=== PATIENT | female | born 1970 | race Two or more races ===

== ENCOUNTER 2016-11-20 22:43 | Emergency (ER) | payer OTHER ==
[~2016-11-20] VITALS: Ht 167.6 cm; Wt 104.3 kg
[~2016-11-20 22:43] MED LIST: ARMO250T4 PO; BUPR1PAT2 TD; BUTRANS TD; CHARCOAL PO; CITA10TA17 PO; CODE1CAP21 PO; DEXT5TAB15 PO; DICY10CA59 PO; FURO40TA5 PO; HYDR-3658 PO; IBUP-1482 PO; MAGN200T4 PO; META-25 PO; MILN100T PO; PANT40TA4 PO; POTA10TA PO; TIZA4TAB11 PO; TOPI50TA PO; TRIM300C14 PO; [UNRECOGNIZED DRUG - OTHER] TP
--- NOTE | 2016-11-20 22:55 | NUR ---
PT A/OX4 BREATHING EFFORTLESSLY ON ROOM AIR, PT STATES SHE HAS BEEN HVAING RIGHT FLANK PAIN X 3 HOURS, PT STATES SHE HAS HX OF KIDNEY STONES, PT GIVEN 4MG OF ZOFRAN BY EMS PRIRO TO ARRIVAL, IV PLACED, URINE COLLECTED, LABS DRAWN, PT IN GOWN AND ON MONITOR, MD MADE AWARE WILL CONTINUE TO MONITOR.
[2016-11-20] MEDS ORDERED: MORPHINE SULFATE INJ 2 MG/ML DISP.SYRIN IV ONE (23:00)
[2016-11-20] MEDS ORDERED: ONDANSETRON HCL/PF 4 MG/2 ML VIAL IVP ONE (23:00)
[2016-11-20] MEDS ORDERED: IV NS 0.9% 1,000 ML BAG IV ONE (23:00)
[2016-11-20] MEDS ORDERED: MORPHINE SULFATE INJ 4 MG/ML DISP.SYRIN ONE ×2 (23:05→23:58)
[2016-11-20] MEDS ORDERED: IV SET PRIMARY 1 EA INFUS.SET MC ONE (23:05)
[2016-11-20] MEDS ORDERED: IV NS 0.9% 1,000 ML ONE (23:05)
[2016-11-20 23:14] LABS: BASOPHILS % (AUTO) 0.2 % (0.0-2.0); EOSINOPHILS % (AUTO) 0.3 % (0.0-6.0); HEMATOCRIT 49 % (33-45); HEMOGLOBIN 16.7 g/dL (11.5-14.8); LYMPHOCYTES # (AUTO) 1.5 /CMM (0.8-4.8); LYMPHOCYTES % (AUTO) 13.1 % (20.0-44.0); MEAN CORPUSCULAR HEMOGLOBIN 31 PG (26.0-33.0); MEAN CORPUSCULAR HGB CONC 34 g/dl (31.0-36.0); MEAN CORPUSCULAR VOLUME 90 fL (82-100); MONOCYTES # (AUTO) 0.6 /CMM (0.1-1.30); MONOCYTES % (AUTO) 4.9 % (2.0-12.0); NEUTROPHILS # (AUTO) 9.2 /CMM (1.8-8.9); NEUTROPHILS % (AUTO) 81.5 % (43.0-81.0); PLATELET COUNT (AUTO) 252 /CMM (150-450); RED BLOOD CELL COUNT(AUTO) 5.47 MIL/uL (4.0-5.2); WHITE BLOOD COUNT (AUTO) 11.3 K/uL (4.3-11.0)
[2016-11-20] MEDS ORDERED: KETOROLAC TROMETHAMINE INJ 30 MG/ML VIAL ONE (23:14)
[2016-11-20 23:16] LABS: APPEARANCE,URINE SL CLOUDY (CLEAR); BILIRUBIN,URINE NEGATIVE (NEGATIVE); BLOOD, URINE 2+ Ery/uL (NEGATIVE); COLOR,URINE YELLOW (YELLOW); KETONES,URINE NEGATIVE (NEGATIVE); LEUKOCYTE ESTERASE ,URINE NEGATIVE (NEGATIVE); NITRITE, URINE NEGATIVE (NEGATIVE); PH,URINE 5.5 (5.0-8.0); PROTEIN,URINE 1+ mg/dl (NEGATIVE); UGLUCOSE NEGATIVE (NEGATIVE); UROBILINOGEN,URINE 0.2 EU/dL (0.2)
[2016-11-20 23:23] LABS: BACTERIA,URINE 2+ /HPF (None Seen); MUCUS,URINE Few /LPF (None Seen); SQUAMOUS EPITHELIAL CELL,UR Few /HPF (None Seen); URIC ACID CRYSTALS,URINE Many /HPF (None Seen); WBC,URINE 0-2 /HPF (0-3)
[2016-11-20 23:26] LABS: CALCIUM, SERUM 9.3 mg/dL (8.5-10.1); POTASSIUM 3.5 mmol/L (3.5-5.1)
[2016-11-20] MEDS ORDERED: KETOROLAC TROMETHAMINE INJ 30 MG/ML VIAL IV ONE (23:30)
[2016-11-20 23:31] LABS: ALBUMIN 4.1 g/dL (3.4-5.0); BILIRUBIN,DIRECT 0.1 mg/dL (0.0-0.2); BILIRUBIN,TOTAL 0.6 mg/dL (0.2-1.0); TOTAL PROTEIN, SERUM 7.4 g/dL (6.4-8.2)
[2016-11-21] MEDS ORDERED: MORPHINE SULFATE INJ 2 MG/ML DISP.SYRIN IV ONE
--- NOTE | 2016-11-21 00:41 | NUR ---
IV removed. Catheter intact and site benign. Pressure and 4x4 applied to site. No bleeding noted.Patient discharged to home in stable condition. Written and verbal after care instructions given. Patient verbalizes understanding of instruction.
[2016-11-21 00:42] VITALS: BP 137/72
== END 2016-11-21 00:43 | disposition home or self-care (01) ==
LOC: ER 22:45
DX: N20.0 Calculus of kidney (principal); G89.29 Other chronic pain; Z87.442 Personal history of urinary calculi
CPT/HCPCS: 36415; 80048; 80076; 81001; 83690; 85025; 96361; 96374; 96375; 99284; A4606; J1885; J2270; J7030; Z7610; 81000-TC

== ENCOUNTER 2022-04-24 17:23 | Inpatient (IN) | payer OTHER ==
[~2022-04-24] VITALS: Ht 172.7 cm; Wt 68.0 kg
[~2022-04-24 17:23] MED LIST changes: +ARMO250T2 PO; -ARMO250T4 PO; -HYDR-3658 PO; +HYDR-3980 PO; -IBUP-1482 PO; +IBUP800T54 PO; -PANT40TA4 PO; +PANT40TA49 PO
--- NOTE | 2022-04-24 17:30 | NUR ---
[id number] FROM HOME C/O SEIZURE, UNWITNESSED, POST ICTAL, ABRASION ON LEFT CHEEK, +ORAL TRAUMA
--- NOTE | 2022-04-24 17:36 | NUR ---
ROOM MATE [phone]
--- NOTE | 2022-04-24 17:49 | NUR ---
ESTABLISHED IV LINE LEFT WRIST 20G
[2022-04-24] MEDS ORDERED: IV NS 0.9% 1,000 ML BAG IV ONE (18:30)
--- NOTE | 2022-04-24 19:05 | NUR ---
ASSISTANT MANAGER PT = BENJAMIN [phone]
--- NOTE | 2022-04-24 19:32 | NUR ---
RECEIVED REPORT FROM ISIDRO GRAHAM. PT CAME INITIALLY WITH CC OF SEIZURE AT HOME. PATIENT IS AAOX4. ABLE TO MAKE NEEDS KNOWN. + ABRASIONS ON LEFT CHEEK. WITH IV ACCESS ON RIGHT INNER WRIST USING G20; WITH ONGOING IVF OF 0.9NS RUNNING. ATTACHED TO MONITOR. VITALS CHECKED.
[2022-04-24 19:41] LABS: CALCIUM, SERUM 9.4 mg/dL (8.5-10.1); CARBON DIOXIDE 21 mmol/L (21-32); CHLORIDE 117 mmol/L (98-107); CREATININE 1.1 mg/dL (0.6-1.3); GLUCOSE 106 mg/dL (74-106); POTASSIUM 3.6 mmol/L (3.5-5.1); SODIUM SERUM 144 mmol/L (136-145); UREA NITROGEN, BLOOD 18 mg/dL (7-18)
[2022-04-24] MEDS ORDERED: LORAZEPAM INJ 2 MG/ML VIAL ONE (19:51)
[2022-04-24] MEDS ORDERED: LEVETIRACETAM (500MG) 500 MG/5 ML VIAL IV ONE (19:52)
--- NOTE | 2022-04-24 19:55 | NUR ---
PATIENT IS HAVING TONIC/CLONIC SEIZURE. POSITIONED PATIENT ON THE RIGHT SIDE TO HELP WITH AIRWAY. MD MADE AWARE
[2022-04-24 19:56] LABS: ALANINE AMINOTRANSFERASE 44 U/L (12-78); ALBUMIN 4.2 g/dL (3.4-5.0); ALKALINE PHOSPHATASE 31 U/L (46-116); ASPARTATE AMINOTRANSFERASE 21 U/L (15-37); BILIRUBIN,DIRECT 0.1 mg/dL (0.0-0.2); BILIRUBIN,TOTAL 0.5 mg/dL (0.2-1.0); TOTAL PROTEIN, SERUM 7.2 g/dL (6.4-8.2)
[2022-04-24 19:57] LABS: ALCOHOL, BLOOD < 3 mg/dL (0-0)
[2022-04-24] MEDS ORDERED: LEVETIRACETAM (500MG) 1,000 MG in IV NS 0.9% 100 ML IV SCH ×2 (20:00→23:00)
[2022-04-24] MEDS ORDERED: LORAZEPAM INJ 2 MG/ML VIAL IV ONE (20:00)
--- NOTE | 2022-04-24 20:01 | NUR ---
SUCTION SECRETIONS DONE. PLACED PATIENT ON NON REBREATHER AT 15LPM
--- NOTE | 2022-04-24 20:20 | NUR ---
PT REGAIN CONSCIOUSNESS BUT STILL DROWSY. CANNOT REMEMBER WHAT HAPPENED.
--- NOTE | 2022-04-24 20:40 | NUR ---
DR REYNA ON THE PHONE WITH MILANO
[2022-04-24 20:41] LABS: BASOPHILS % (AUTO) 0.4 % (0.0-2.0); EOSINOPHILS % (AUTO) 0.4 % (0.0-6.0); HEMATOCRIT 48 % (33-45); HEMOGLOBIN 16.1 g/dL (11.5-14.8); LYMPHOCYTES # (AUTO) 1.2 K/uL (0.8-4.8); LYMPHOCYTES % (AUTO) 19.3 % (20.0-44.0); MEAN CORPUSCULAR HGB CONC 34 g/dl (31.0-36.0); MEAN CORPUSCULAR VOLUME 96 fL (82-100); MONOCYTES # (AUTO) 0.3 K/uL (0.1-1.30); MONOCYTES % (AUTO) 5.2 % (2.0-12.0); NEUTROPHILS # (AUTO) 4.6 K/uL (1.8-8.9); NEUTROPHILS % (AUTO) 74.7 % (43.0-81.0); PLATELET COUNT (AUTO) 238 K/uL (150-450); RED BLOOD CELL COUNT(AUTO) 4.96 MIL/uL (4.0-5.2); WHITE BLOOD COUNT (AUTO) 6.2 K/uL (4.3-11.0)
--- NOTE | 2022-04-24 21:55 | NUR ---
DR REYNA ON THE PHONE WITH DR PERSAUD FROM [facility]
--- NOTE | 2022-04-24 22:17 | NUR ---
PER DR PERSAUD AND EDER AT [facility] GOT AUTH TO STAY AT THE [facility] CASE REF NO: [id number]
--- NOTE | 2022-04-24 22:18 | NUR ---
RM 306-1
[2022-04-24] MEDS ORDERED: METH-359 PO (22:24)
[2022-04-24] MEDS ORDERED: DICY10SO PO (22:24)
--- NOTE | 2022-04-24 22:30 | NUR ---
PATIENT IS AWAKE, ALERT, ORIENTED X4. ABLE TO TURN BY SELF.
--- NOTE | 2022-04-24 22:38 | NUR ---
REPORT GIVEN TO ISIDRO MELCHOR.
--- NOTE | 2022-04-24 22:47 | NUR ---
TRANSFERED TO 306 UNDER ACLS
[2022-04-24 23:00] VITALS: BP 119/66
[2022-04-24] MEDS ORDERED: MAGNESIUM HYDROXIDE 30 ML UDC PO PRN (23:00)
[2022-04-24] MEDS ORDERED: ONDANSETRON HCL/PF 4 MG/2 ML VIAL IVP PRN (23:00)
[2022-04-24] MEDS ORDERED: IV NS 0.9% 1,000 ML IV ONE (23:00)
[2022-04-24] MEDS ORDERED: ZOLPIDEM TARTRATE 5 MG TABLET PO PRN (23:00)
[2022-04-24] MEDS ORDERED: Z GUARD REMEDY 4 OZ OINT TP PRN (23:00)
[2022-04-24] MEDS ORDERED: LORAZEPAM INJ 2 MG/ML VIAL IV PRN (23:00)
[2022-04-24] MEDS ORDERED: MAG HYDROX/AL HYDROX/SIMETH 30 ML UDC PO PRN (23:00)
--- NOTE | 2022-04-24 23:00 | NUR ---
RN NOTE; RECEIVED PT FROM ER WITH TEJAS SYLVESTER ABLE TO MAKE NEEDS KNOWN,KAIA WELL ON RM AIR,NO SIGN SOB/DISTRESS NOTED,BREATHING EVEN AND UNLABORE,NO COMPLAIN OF PAIN/DISCOMFORT AT THIS TIME,IV ACCESS ON L INNER WRIST 20G SL,INTACT AND PATENT,PT WAS ORIENT THE RM AND VERBALLY UNDERSTANDING,SAFETY MEASURE IN PLACE,CALL LIGHT WITHIN REACH,WILL CONTINUE TO MONITOR.
[2022-04-25 06:13] LABS: BASOPHILS % (AUTO) 0.3 % (0.0-2.0); EOSINOPHILS % (AUTO) 0.4 % (0.0-6.0); HEMATOCRIT 39 % (33-45); HEMOGLOBIN 13.2 g/dL (11.5-14.8); LYMPHOCYTES # (AUTO) 1.6 K/uL (0.8-4.8); LYMPHOCYTES % (AUTO) 22.1 % (20.0-44.0); MEAN CORPUSCULAR HGB CONC 34 g/dl (31.0-36.0); MEAN CORPUSCULAR VOLUME 94 fL (82-100); MONOCYTES # (AUTO) 0.5 K/uL (0.1-1.30); MONOCYTES % (AUTO) 6.7 % (2.0-12.0); NEUTROPHILS % (AUTO) 70.5 % (43.0-81.0); PLATELET COUNT (AUTO) 222 K/uL (150-450); RED BLOOD CELL COUNT(AUTO) 4.14 MIL/uL (4.0-5.2)
--- NOTE | 2022-04-25 06:21 | NUR ---
RN CLOSING NOTE; PATIENT IN BED AAOX4 ABLE TO MAKE NEEDS KNOWN,KAIA WELL ON RM AIR,NO SIGN SOB/DISTRESS NOTED,BREATHING EVEN AND UNLABORED,NO COMPLAIN OF PAIN/DISCOMFORT DURING SHIFT,DUE MEDS GIVEN ORDER,ALL NEEDS ATTENDED,IV ACCESS ON Lt WRIST 20G WITH NS RUNNING @75ML/HR,KAIA WELL,INTACT AND PATENT,SAFETY MEASURE IN PLACE,CALL LIGHT WITHIN REACH,WILL ENDORSED TO NEXT SHIFT.
[2022-04-25 06:42] LABS: BILIRUBIN,URINE NEGATIVE (NEGATIVE); COLOR,URINE YELLOW (YELLOW); LEUKOCYTE ESTERASE ,URINE NEGATIVE (NEGATIVE); NITRITE, URINE NEGATIVE (NEGATIVE); PH,URINE 6.5 (5.0-8.0); PROTEIN,URINE NEGATIVE (NEGATIVE); UGLUCOSE NEGATIVE (NEGATIVE); UROBILINOGEN,URINE 0.2 EU/dL (0.2)
[2022-04-25 06:49] LABS: CALCIUM, SERUM 8.3 mg/dL (8.5-10.1); CREATININE 0.6 mg/dL (0.6-1.3); MAGNESIUM 2.1 mg/dL (1.8-2.4); POTASSIUM 3.5 mmol/L (3.5-5.1)
--- NOTE | 2022-04-25 07:30 | NUR ---
RN OPENING NOTE; RECEIVED PT AOX4 ABLE TO MAKE NEEDS KNOWN. ON RM AIR,TOLERATING WELL. NO SIGN SOB/DISTRESS NOTED,BREATHING EVEN AND UNLABORED,NO COMPLAIN OF PAIN/DISCOMFORT AT THIS TIME,IV ACCESS ON L INNER WRIST 20G SL,INTACT AND PATENT. STILL ON NPO. SAFETY MEASURE IN PLACE,CALL LIGHT WITHIN REACH,WILL CONTINUE TO MONITOR
--- NOTE | 2022-04-25 07:38 | NUR ---
WOUND CARE CONSULT: PT PRESENTS WITH DRY ABRASION ON LEFT CHEEK AND ON CORNER OF NOSE, PRESENT ON ADMISSION. DISCUSSED SKIN PROTECTION WITH NURSING STAFF. PT IS INDEPENDENT WITH BED MOBILITY AND IS CONTINENT. WILL SEE PRN.
[2022-04-25 08:00] VITALS: BP 113/58
[2022-04-25] MEDS ORDERED: LEVETIRACETAM (500MG) 1,000 MG in IV NS 0.9% 100 ML IV SCH (08:00)
[2022-04-25] MEDS ORDERED: LORA-259 PO (08:20)
[2022-04-25] MEDS ORDERED: VORT10TA PO (08:20)
[2022-04-25] MEDS ORDERED: LEVO100T9 PO (08:20)
[2022-04-25] MEDS ORDERED: OMEP20CA15 PO (08:20)
[2022-04-25] MEDS ORDERED: MUPI22OI2 TP (08:20)
[2022-04-25] MEDS ORDERED: MULT-24 PO (08:20)
[2022-04-25] MEDS ORDERED: DICL100G34 TP (08:20)
[2022-04-25] MEDS ORDERED: BUSP10TA3 PO (08:20)
[2022-04-25] MEDS ORDERED: SPIR50TA5 PO (08:20)
[2022-04-25] MEDS ORDERED: LIDO30AD10 TP (08:20)
[2022-04-25] MEDS ORDERED: METH10TA4 PO (08:20)
[2022-04-25] MEDS ORDERED: DICY10CA37 PO (08:20)
[2022-04-25] MEDS ORDERED: ONDA4TAB11 SL (08:20)
[2022-04-25] MEDS ORDERED: LAMO100T2 PO (08:20)
[2022-04-25] MEDS ORDERED: TIZA4TAB5 PO (08:20)
[2022-04-25] MEDS ORDERED: CALC1TAB30 PO (08:20)
[2022-04-25 08:33] LABS: BACTERIA,URINE Rare /HPF (None Seen); CALCIUM OXALATE CRYSTALS,UR Few /HPF (None Seen); MUCUS,URINE Moderate /LPF (None Seen); RBC,URINE 0-2 /HPF (0-2); SQUAMOUS EPITHELIAL CELL,UR Few /HPF (None Seen); WBC,URINE 0-2 /HPF (0-3)
[2022-04-25 08:44] LABS: THYROID STIMULATING HORMONE 1.309 uIU/mL (0.358-3.74)
[2022-04-25] MEDS: ACETAMINOPHEN 325 MG TABLET PO PRN ×2 (11:36→22:20)
[2022-04-25] MEDS ORDERED: ONDANSETRON 4 MG TAB.RAPDIS SL PRN (12:00)
[2022-04-25] MEDS ORDERED: LIDOCAINE 5% (PATCH) 1 EA PATCH TP PRN (12:00)
[2022-04-25] MEDS ORDERED: LORAZEPAM 1 MG TABLET PO PRN (12:00)
[2022-04-25] MEDS ORDERED: DICLOFENAC TOPICAL 100 GM GEL..GM. TP PRN (12:00)
[2022-04-25] MEDS ORDERED: METHYLPHENIDATE HCL PO SCH (13:00)
[2022-04-25] MEDS: MUPIROCIN OINT 2% 22 GM TUBE TP SCH ×2 (13:00→17:24)
[2022-04-25] MEDS ORDERED: TIZANIDINE HCL 4 MG TABLET PO SCH (13:00)
[2022-04-25] MEDS: DICYCLOMINE HCL 10 MG CAPSULE PO SCH ×3 (14:17→22:09)
[2022-04-25 16:00] VITALS: BP 113/61
[2022-04-25] MEDS ORDERED: PANTOPRAZOLE 40 MG TABLET.DR PO SCH (16:30)
[2022-04-25] MEDS ORDERED: LamoTRIgine 100 MG TABLET PO SCH ×2 (17:00→22:00)
[2022-04-25] MEDS ORDERED: busPIRone 5 MG TABLET PO SCH (17:00)
--- NOTE | 2022-04-25 18:18 | NUR ---
RN CLOSING NOTE; PATIENT IN BED AAOX4 ABLE TO MAKE NEEDS KNOWN,TOLERATING WELL ON RM AIR,NO SIGN SOB/DISTRESS NOTED,BREATHING EVEN AND UNLABORED,NO COMPLAIN OF PAIN/DISCOMFORT DURING SHIFT,DUE MEDS GIVEN ORDER,ALL NEEDS ATTENDED,IV ACCESS ON Lt WRIST 20G. DUE MEDS GIVEN. WITH DISCHARGE PLANNING TODAY. KAIA WELL,INTACT AND PATENT,SAFETY MEASURE IN PLACE,CALL LIGHT WITHIN REACH.
--- NOTE | 2022-04-25 19:24 | NUR ---
RN OPENING NOTE; RECEIVED PT IN BED AAOX4 ABLE TO MAKE NEEDS KNOWN,ON RM AIR KAIA WELL,NO SIGN SOB/DISTRESS NOTED,NO COMPLAIN OF PAIN/DISCOMFORT AT THIS TIME,IV SITE ON LT WRIST PATENT AND INTACT,PT WAITING TO BE TRANSFER TO [facility],SAFETY MEASURE IN PLACE,CALL LIGHT WITHIN REACH,WILL CONTINUE TO MONITOR.
[2022-04-25 20:00] VITALS: BP 100/51
--- NOTE | 2022-04-25 21:15 | NUR ---
RN NOTE; I CALLED [facility] TO GIVE REPORT NURSE JOSE JUAN.SHE ASKED ME WHAT TIME IS THE SUPERVISING [employer] ENFORCEMENT ANALYST [id number].
--- NOTE | 2022-04-25 22:52 | NUR ---
RN NOTE; PT WAS PIPE INSTALLER BY [facility],PT AAOX4,STABLE,V/S WNL,IV SITE INTACT AND PATENT,NO BLEEDING NOTED.BELONGING WITH THE PT.
[2022-04-26] MEDS ORDERED: LEVOTHYROXINE SODIUM 100 MCG TABLET PO SCH (07:30)
[2022-04-26] MEDS ORDERED: CALCIUM CARB 600MG /VIT D 1 EACH TABLET PO SCH (09:00)
[2022-04-26] MEDS ORDERED: LamoTRIgine 100 MG TABLET PO SCH (09:00)
[2022-04-26] MEDS ORDERED: SPIRONOLACTONE 25 MG TABLET PO SCH (09:00)
[2022-04-26] MEDS ORDERED: MULTIVITAMINS,THERAGRAN 1 UDTAB TABLET PO SCH (09:00)
[2022-04-28 17:06] LABS: LAMOTRIGINE 3.7 ug/mL (2.0-20.0)
== END 2022-04-25 22:50 | disposition short-term general hospital (02) | DRG 101 ==
LOC: ER 17:26 → TELE 22:19
PROVIDERS: ADMIT Nurse Practitioner Acute Care; ATTEND Student in an Organized Health Care Education/Training Program
DX: G40.909 Epilepsy, unspecified, not intractable, without status epilepticus (principal); Z20.822 Contact with and (suspected) exposure to COVID-19; E03.9 Hypothyroidism, unspecified; Z79.899 Other long term (current) drug therapy; Z87.442 Personal history of urinary calculi; G89.29 Other chronic pain; Z88.8 Allergy status to other drugs, medicaments and biological substances; M79.7 Fibromyalgia
CPT/HCPCS: 36415; 70450-TC; 71045-TC; 80048-TC; 80061-TC; 80076-TC; 80175; 80177; 80185-TC; 81001; 82962-TC; 83735-TC; 84443-TC; 84484-TC; 85025-TC; 95819-TC; C9803; G0378; G0480; J1953; J2060; J7030; Q0162

== ENCOUNTER 2024-11-08 04:14 | Emergency (ER) | payer OTHER ==
[~2024-11-08] VITALS: Ht 167.6 cm; Wt 63.5 kg
[~2024-11-08 04:14] MED LIST changes: -ARMO250T2 PO; -BUPR1PAT2 TD; +BUSP10TA3 PO; -BUTRANS TD; +CALC1TAB30 PO; -CHARCOAL PO; -CITA10TA17 PO; -CODE1CAP21 PO; -DEXT5TAB15 PO; +DICL100G34 TP; -DICY10CA59 PO; +DICY10SO PO; -FURO40TA5 PO; -HYDR-3980 PO; -IBUP800T54 PO; +LAMO100T2 PO; +LEVO100T9 PO; +LIDO30AD10 TP; +LORA-259 PO; -MAGN200T4 PO; -META-25 PO; +METH-359 PO; -MILN100T PO; +MULT-24 PO; +MUPI22OI2 TP; +OMEP20CA15 PO; +ONDA4TAB11 SL; -PANT40TA49 PO; -POTA10TA PO; +SPIR50TA5 PO; -TIZA4TAB11 PO; +TIZA4TAB5 PO; -TOPI50TA PO; -TRIM300C14 PO; +VORT10TA PO; -[UNRECOGNIZED DRUG - OTHER] TP
[2024-11-08] MEDS ORDERED: LEVETIRACETAM (500MG) 500 MG/5 ML VIAL IV ONE (04:23)
[2024-11-08] MEDS: LEVETIRACETAM (500MG) 500 MG in IV NS 0.9% 100 ML IV SCH (04:28)
[2024-11-08 04:37] LABS: BASOPHILS % (AUTO) 0.4 % (0.0-2.0); EOSINOPHILS % (AUTO) 0.4 % (0.0-6.0); HEMATOCRIT 48 % (33-45); LYMPHOCYTES # (AUTO) 2.7 K/uL (0.8-4.8); LYMPHOCYTES % (AUTO) 28.3 % (20.0-44.0); MEAN CORPUSCULAR HEMOGLOBIN 33 PG (26.0-33.0); MEAN CORPUSCULAR HGB CONC 33 g/dl (31.0-36.0); MEAN CORPUSCULAR VOLUME 98 fL (82-100); MONOCYTES # (AUTO) 0.8 K/uL (0.1-1.30); MONOCYTES % (AUTO) 8.4 % (2.0-12.0); NEUTROPHILS # (AUTO) 5.9 K/uL (1.8-8.9); NEUTROPHILS % (AUTO) 62.5 % (43.0-81.0); PLATELET COUNT (AUTO) 241 K/uL (150-450); RED BLOOD CELL COUNT(AUTO) 4.91 MIL/uL (4.0-5.2); RED CELL DISTRIBUTION WIDTH 12.6 % (11.5-15.0); WHITE BLOOD COUNT (AUTO) 9.4 K/uL (4.3-11.0)
[2024-11-08 04:44] LABS: CALCIUM, SERUM 9.4 mg/dL (8.5-10.1); POTASSIUM 2.9 mmol/L (3.5-5.1)
[2024-11-08] MEDS ORDERED: POTASSIUM CL. PREMIX PERIPHER. 50 ML ONE (08:37)
[2024-11-08] MEDS: POTASSIUM CL. PREMIX PERIPHER. 50 ML IV SCH (08:42)
[2024-11-08] MEDS ORDERED: POTASSIUM CHLORIDE 20 MEQ POWDER PACKET ONE (09:27)
[2024-11-08] MEDS: POTASSIUM CHLORIDE 20 MEQ POWDER PACKET PO ONE (09:31)
[2024-11-08 09:50] VITALS: BP 108/72; TEMP 97.8; O2SAT 99
== END 2024-11-08 09:52 | disposition short-term general hospital (02) ==
LOC: ER 04:18
DX: G40.909 Epilepsy, unspecified, not intractable, without status epilepticus (principal); G89.29 Other chronic pain; Z79.899 Other long term (current) drug therapy; Z87.442 Personal history of urinary calculi; Z88.5 Allergy status to narcotic agent; Z88.6 Allergy status to analgesic agent; Z88.8 Allergy status to other drugs, medicaments and biological substances
CPT/HCPCS: 99291; 96365; 70450; 96367; 93005; 71045; 85025; 80048; 36415; 82962; J7030 ×2; J3480; J1953 ×2

== ENCOUNTER 2025-03-11 06:53 | Emergency (ER) | payer OTHER ==
[~2025-03-11] VITALS: Ht 170.2 cm; Wt 72.6 kg
[2025-03-11 06:54] VITALS: TEMP 98.6
[2025-03-11 07:25] LABS: PLATELET COUNT (AUTO) 250 K/uL (150-450); RED BLOOD CELL COUNT(AUTO) 4.86 MIL/uL (4.0-5.2); RED CELL DISTRIBUTION WIDTH 13.1 % (11.5-15.0); WHITE BLOOD COUNT (AUTO) 8.2 K/uL (4.3-11.0)
[2025-03-11 07:38] LABS: CALCIUM, SERUM 9.2 mg/dL (8.5-10.1); CREATININE 0.9 mg/dL (0.6-1.3); SODIUM SERUM 144.0 mmol/L (136-145); UREA NITROGEN, BLOOD 16.0 mg/dL (7-18)
[2025-03-11 07:55] LABS: TOTAL PROTEIN, SERUM 6.9 g/dL (6.4-8.2)
[2025-03-11] MEDS: LEVETIRACETAM (500MG) 1,000 MG in IV NS 0.9% 100 ML IV ONE (08:00)
[2025-03-11] MEDS ORDERED: LORAZEPAM INJ 2 MG/ML VIAL ONE (08:05)
[2025-03-11 08:11] LABS: ASPARTATE AMINOTRANSFERASE 25.0 U/L (15-37)
[2025-03-11 10:15] VITALS: BP 125/79; O2SAT 95
[2025-03-11] MEDS: LORAZEPAM INJ 2 MG/ML VIAL IV ONE (11:09)
== END 2025-03-11 11:10 | disposition short-term general hospital (02) ==
LOC: ER 06:54
DX: R56.9 Unspecified convulsions (principal); G89.29 Other chronic pain; Z79.899 Other long term (current) drug therapy; Z87.442 Personal history of urinary calculi; Z88.5 Allergy status to narcotic agent; Z88.6 Allergy status to analgesic agent; Z88.8 Allergy status to other drugs, medicaments and biological substances
CPT/HCPCS: 99285; 96374; 70450; 71045; 93005; 85025; 80048; 80076; 36415; J2060; J7030; J1953